=== PATIENT | female | born 1940 | race Caucasian/White ===

== ENCOUNTER 2018-02-27 18:12 | Emergency (ER) | payer OTHER, MEDICAID ==
[~2018-02-27] VITALS: Ht 157.5 cm; Wt 93.0 kg
[2018-02-27 19:10] LABS: Basophils # (auto) 0 uL; Basophils % (auto) 0.5 % (0.0-2.0); Eosinophils # (auto) 0.2 uL; Eosinophils % (auto) 2.6 % (0.0-7.0); Hemoglobin 13.9 g/dL (12.2-16.2); Lymphocytes # (auto) 1.2 uL; Lymphocytes % (auto) 15.9 % (10.0-50.0); Mean Corpuscular Hemoglobin 29.3 pg (28.0-32.0); Mean Corpuscular Hgb Conc. 33.1 g/dL (32.0-36.0); Mean Corpuscular Volume 88.6 fL (80.0-100.0); Monocytes # (auto) 0.6 uL; Monocytes % (auto) 7.7 % (0.0-12.0); Neutrophils # (auto) 5.5 uL; Neutrophils % (auto) 73.3 % (37.0-80.0); Platelet Count (auto) 126 10^3/uL (140-450); Red Blood Cells 4.75 10^6/uL (4.0-5.20); Red Cell Distribution Width 15.3 % (11.8-14.3); White Blood Cell 7.5 10^3/uL (4.4-10.8)
[2018-02-27 19:22] LABS: INR 0.93 (0.9-1.15); Partial Thromboplastin Time 28.4 sec (23.78-33.04)
[2018-02-27 19:25] LABS: Albumin 3.7 g/dL (3.4-5.0); Calcium 8.7 mg/dL (8.5-10.1); Potassium 3.7 mmol/L (3.5-5.1)
[2018-02-27 19:27] LABS: Bilirubin, Total 0.5 mg/dL (0.2-1.0); Total Protein 7.6 g/dL (6.4-8.2)
[2018-02-28] MEDS ORDERED: VANCOMYCIN 1GM/250ML 250 ML IV ONE ×2 (01:00→01:21)
[2018-02-28 02:41] VITALS: BP 146/78
== END 2018-02-28 02:47 | disposition home or self-care (01) ==
LOC: ER 18:12
DX: N61.0 Mastitis without abscess (principal); I10 Essential (primary) hypertension; E78.5 Hyperlipidemia, unspecified; G89.4 Chronic pain syndrome; Z85.3 Personal history of malignant neoplasm of breast; Z88.8 Allergy status to other drugs, medicaments and biological substances
CPT/HCPCS: 36415; 80053; 85025; 85610; 85730; 96365; 99283; J3370

== ENCOUNTER 2018-06-30 19:48 | Emergency (ER) | payer OTHER, MEDICAID ==
[~2018-06-30] VITALS: Ht 157.5 cm; Wt 92.1 kg
[2018-06-30 21:48] LABS: Basophils # (auto) 0 uL; Basophils % (auto) 0.3 % (0.0-2.0); Eosinophils # (auto) 0 uL; Hematocrit 41.6 % (36.0-46.0); Hemoglobin 13.7 g/dL (12.2-16.2); Lymphocytes # (auto) 0.6 uL; Lymphocytes % (auto) 4.6 % (10.0-50.0); Mean Corpuscular Hemoglobin 28.7 pg (28.0-32.0); Mean Corpuscular Hgb Conc. 32.9 g/dL (32.0-36.0); Mean Corpuscular Volume 87.3 fL (80.0-100.0); Monocytes # (auto) 0.6 uL; Monocytes % (auto) 4.8 % (0.0-12.0); Neutrophils # (auto) 11.5 uL; Neutrophils % (auto) 90.3 % (37.0-80.0); Nucleated Red Blood Cells % 0.1 %; Platelet Count (auto) 164 10^3/uL (140-450); Red Blood Cells 4.77 10^6/uL (4.0-5.20); Red Cell Distribution Width 15.9 % (11.8-14.3); White Blood Cell 12.8 10^3/uL (4.4-10.8)
[2018-06-30 22:06] LABS: Albumin 3.9 g/dL (3.4-5.0); Potassium 3.3 mmol/L (3.5-5.1)
[2018-06-30 22:11] LABS: BUN/Creatinine Ratio 20.5; Bilirubin, Total 0.8 mg/dL (0.2-1.0); Total Protein 7.3 g/dL (6.4-8.2)
[2018-06-30] MEDS: SODIUM CHLORIDE 0.9% 250 ML IV ONE (23:15)
[2018-06-30] MEDS: MORPHINE SULFATE 4 MG/ML SYR/VIAL IV ONE (23:26)
[2018-06-30] MEDS: ONDANSETRON HCL 4 MG/2 ML VIAL IV ONE (23:27)
[2018-06-30 23:53] LABS: Basophils # (auto) 0.1 uL; Basophils % (auto) 0.9 % (0.0-2.0); Eosinophils # (auto) 0 uL; Eosinophils % (auto) 0.1 % (0.0-7.0); Hematocrit 40.3 % (36.0-46.0); Hemoglobin 13.1 g/dL (12.2-16.2); Lymphocytes # (auto) 0.8 uL; Lymphocytes % (auto) 6.3 % (10.0-50.0); Mean Corpuscular Hemoglobin 28.7 pg (28.0-32.0); Mean Corpuscular Hgb Conc. 32.6 g/dL (32.0-36.0); Monocytes # (auto) 0.5 uL; Monocytes % (auto) 4.6 % (0.0-12.0); Neutrophils # (auto) 10.4 uL; Neutrophils % (auto) 88.1 % (37.0-80.0); Nucleated Red Blood Cells % 0.1 %; Platelet Count (auto) 145 10^3/uL (140-450); Red Blood Cells 4.58 10^6/uL (4.0-5.20); Red Cell Distribution Width 15.6 % (11.8-14.3); White Blood Cell 11.9 10^3/uL (4.4-10.8)
[2018-07-01] MEDS: PIPERACILLIN-TAZOB 3.375GM 100 ML IV ONE (00:09)
[2018-07-01] MEDS: SODIUM CHLORIDE 0.9% 1,000 ML IV ONE (00:57)
[2018-07-01] MEDS: VANCOMYCIN 1GM/250ML 250 ML IV ONE (01:59)
[2018-07-01] MEDS: ACETAMINOPHEN 325 MG TAB PO ONE (02:53)
[2018-07-01 05:15] VITALS: BP 101/57
== END 2018-07-01 05:45 | disposition home or self-care (01) ==
LOC: ER 19:50
DX: N61.0 Mastitis without abscess (principal); D72.829 Elevated white blood cell count, unspecified; R73.9 Hyperglycemia, unspecified; E78.5 Hyperlipidemia, unspecified; I10 Essential (primary) hypertension; Z90.49 Acquired absence of other specified parts of digestive tract; Z88.8 Allergy status to other drugs, medicaments and biological substances
CPT/HCPCS: 36415; 76642; 80053; 85025; 87040; 96365; 96366; 96368; 96375; 99284; J2270; J2405; J2543; J3370; J7030

== ENCOUNTER 2021-11-11 18:53 | Emergency (ER) | payer OTHER, MEDICAID ==
[~2021-11-11] VITALS: Ht 162.6 cm; Wt 127.0 kg
[2021-11-11 19:12] VITALS: BP 187/113
[2021-11-11 20:18] LABS: Basophils # (auto) 0 10 ^3/uL (0-0.2); Basophils % (auto) 0.7 % (0.0-2.0); Eosinophils # (auto) 0 10 ^3/uL (0-0.8); Eosinophils % (auto) 0.5 % (0.0-7.0); Hemoglobin 13.4 g/dL (12.2-16.2); Lymphocytes # (auto) 0.6 10 ^3/uL (0.4-5.4); Mean Corpuscular Hgb Conc. 32.8 g/dL (32.0-36.0); Mean Corpuscular Volume 85.6 fL (80.0-100.0); Monocytes # (auto) 0.4 10 ^3/uL (0-1.3); Monocytes % (auto) 11.9 % (0.0-12.0); Neutrophils % (auto) 65.9 % (37.0-80.0); Nucleated Red Blood Cells % 0.2 %; Red Blood Cells 4.79 10^6/uL (4.0-5.20)
[2021-11-11 20:33] LABS: INR 1.04 (0.9-1.15); Partial Thromboplastin Time 31.4 sec (24.6-33.4)
[2021-11-11 20:50] LABS: Albumin 3.7 g/dL (3.4-5.0); Calcium 8.9 mg/dL (8.5-10.1); Magnesium 2.1 mg/dL (1.6-2.6); Potassium 3.2 mmol/L (3.5-5.1)
[2021-11-11 20:55] LABS: BUN/Creatinine Ratio 15.8; Bilirubin, Total 0.5 mg/dL (0.2-1.0); Total Protein 7.3 g/dL (6.4-8.2)
[2021-11-12 02:39] LABS: Urine Bacteria FEW /hpf (None Seen); Urine Blood Negative /uL (Negative); Urine Mucus FEW (None Seen); Urine Specific Gravity 1.016 (1.001-1.035); Urine WBC 66 /hpf (0 - 5)
== END 2021-11-12 04:59 | disposition left against medical advice (07) ==
LOC: EDBD 18:53 → ER 18:53
DX: J98.11 Atelectasis (principal); I10 Essential (primary) hypertension; R53.1 Weakness; E78.5 Hyperlipidemia, unspecified; Z87.440 Personal history of urinary (tract) infections
CPT/HCPCS: 36415; 70450; 71045; 80053; 81001; 83735; 83880; 84484; 85025; 85610; 85730; 93005